=== PATIENT | female | born 1965 | race Caucasian/White ===

== ENCOUNTER → 2017-03-29 | Outpatient (CLI) | payer BC ==
--- NOTE | 2017-03-29 15:50 | XR ---
EXAMINATION TYPE: XR chest 2V DATE OF EXAM: 03/29/2017 HISTORY: [id number] chest tightness. REFERENCE: Previous study dated 03/24/2014. FINDINGS: The lungs are overinflated but clear. Pleural space are clear. The heart is not enlarged. IMPRESSION: COPD.
== END | disposition home or self-care (01) ==
LOC: RADXRYALE 15:18
PROVIDERS: ATTEND Family Medicine
DX: J44.9 Chronic obstructive pulmonary disease, unspecified (principal); R07.89 Other chest pain
CPT/HCPCS: 71020

== ENCOUNTER → 2017-06-21 | Outpatient (CLI) | payer BC ==
--- NOTE | 2017-06-21 08:14 | CT ---
EXAMINATION TYPE: CT sinus wo con DATE OF EXAM: 06/21/2017 COMPARISON: 10/01/1715 HISTORY: Chronic sinusitis Unenhanced CT of the paranasal sinuses was performed in the axial and coronal planes. Bone and soft tissue settings are submitted. There is been medial maxillary antrectomy and partial ethmoidectomy bilaterally. Mild persistent muco anne thickening is seen at the base of the left maxillary sinus. Remaining ethmoidal air cells, fronta l sinus and sphenoid sinus are well aerated. No air-fluid levels are seen. The nasal septum is midline. No bony destructive changes are seen within the field of view. IMPRESSION: Postoperative changes as described with the improved mucosal thickening left maxillary sinus.
== END | disposition home or self-care (01) ==
LOC: RADCTMAIN 07:15
PROVIDERS: ATTEND Otolaryngology
DX: J34.89 Other specified disorders of nose and nasal sinuses (principal); J32.9 Chronic sinusitis, unspecified; Z98.890 Other specified postprocedural states
CPT/HCPCS: 70486

== ENCOUNTER → 2017-11-04 | Outpatient (CLI) | payer BC ==
[2017-11-04 10:47] LABS: Blood Urea Nitrogen 15 mg/dL (7-17)
--- NOTE | 2017-11-04 12:54 | CT ---
EXAMINATION TYPE: CT abdomen pelvis w con DATE OF EXAM: 11/04/2017 COMPARISON: NONE HISTORY: Patient complains of left flank pain. CT DLP: 364 mGycm Automated exposure control for dose reduction was used. TECHNIQUE: Helical acquisition of images from the lung bases through the pelvis have been completed. CONTRAST: Performed with Oral Contrast and with IV Contrast, patient injected with 100 mL of Omnipaque 300. FINDINGS: LUNG BASES: No significant abnormality is appreciated. AORTA: No significant abnormality is appreciated. LIVER/GB: No significant abnormality is appreciated. PANCREAS: No significant abnormality is seen. SPLEEN: No significant abnormality is seen. ADRENALS: No significant abnormality is seen. KIDNEYS: Prominent extrarenal pelves are again noted as on prior exam with possible ureteropelvic janette ction stenosis, mild hydronephrosis, there is a calyceal diverticulum, focal scarring present at the upper pole the right kidney laterally as on prior. REPRODUCTIVE ORGANS: No significant abnormality is seen BOWEL: No significant abnormality is seen. Scattered diverticula associated with the colon. Cecum is present within the pelvis as on prior. FREE AIR: No Free Air visible. ASCITES: None visible. PELVIC ADENOPATHY: None visualized. RETROPERITONEAL ADENOPATHY: No Retroperitoneal Adenopathy visible. URINARY BLADDER: No significant abnormality is seen. OSSEOUS STRUCTURES: Degenerative disc changes especially at L5-S1, lateral extension of endplate dis c complex causes foraminal encroachment bilaterally at L5-S1. IMPRESSION: DEGENERATIVE DISC DISEASE. DIVERTICULOSIS. FINDINGS WITHIN THE KIDNEYS ARE STABLE ADDITIONAL FINDINGS ABOVE.
== END | disposition home or self-care (01) ==
LOC: RADCTMAIN 10:08
PROVIDERS: ATTEND Physician Assistant Medical
DX: K57.90 Diverticulosis of intestine, part unspecified, without perforation or abscess without bleeding (principal); N13.30 Unspecified hydronephrosis
CPT/HCPCS: 82565; 84520; 74177; 36415; Q9967

== ENCOUNTER → 2018-08-11 | Outpatient (CLI) | payer BC ==
--- NOTE | 2018-08-11 11:18 | BD ---
EXAMINATION TYPE: Axial Bone Density DATE OF EXAM: 08/11/2018 COMPARISON: NONE CLINICAL HISTORY: Height: 63 Weight: 108.2 FRAX RISK QUESTIONS: Alcohol (3 or more units per day): no Family History (Parent hip fracture): no Glucocorticoids (More than 3mos): no (Ex: prednisone, prednisolone, methylprednisolone, dexamethasone, and hydrocortisone). History of Fracture in Adulthood: yes Secondary Osteoporosis: 1. Type 1 Diabetes: no 2. Hyperthyroidism: no 3. Menopause before 45: yes 4. Malnutrition: no 5. Chronic liver disease: no Rheumatoid Arthritis: no Current Tobacco Use: yes RISK FACTORS HISTORY OF: History of Wrist Fracture: yes right When: 2001 Family History of Osteoporosis: no Active: yes Diet low in dairy products/other sources of calcium: no Postmenopausal woman: Lost more than 2 inches in height since high school: no MEDICATIONS: none Additional History: EXAM MEASUREMENTS: Bone mineral densitometry was performed using the [employer] System. Bone mineral density as measured about the Lumbar spine is: ----- L1-L4(G/cm2): 0.959 T Score Values are as follows: ----- L2: -2.1 ----- L3: -1.2 ----- L4: -2.0 ----- L1-L4: -1.8 Bone mineral density : baseline Bone mineral density about the R hip (g/cm2): 0.717 Bone mineral density about the L hip (g/cm2): 0.766 T Score values are as follows: -----R Neck: -2.3 -----L Neck: -2.0 -----R Total: -1.6 -----L Total: -1.7 Bone mineral density : baseline IMPRESSION: Osteopenia about the lumbar spine and bilateral femora. NOTE: T-SCORE=SD OF THE YOUNG ADULT MEAN.
--- NOTE | 2018-08-14 11:48 | MM ---
Reason for exam: screening (asymptomatic). History: Patient is postmenopausal. Physical Findings: A clinical breast exam by your physician is recommended on an annual basis and results should be correlated with mammographic findings. MG Screening Mammo w CAD Bilateral CC and MLO view(s) were taken. No prior studies available for comparison. The breast tissue is heterogeneously dense. This may lower the sensitivity of mammography. Finding: There is a 7 mm mass in the upper quadrant, central position of the right breast. ASSESSMENT: Incomplete: need additional imaging evaluation, BI-RAD 0 RECOMMENDATION: Special view mammogram of the right breast. If lesion persists on supplemental views, image directed ultrasound is recommended. [facility] will attempt to contact patient to return for supplemental views and ultrasound if indicated.
== END | disposition home or self-care (01) ==
LOC: RADMAMWWP 10:14
PROVIDERS: ATTEND Family Medicine
DX: Z12.31 Encounter for screening mammogram for malignant neoplasm of breast (principal); M85.88 Other specified disorders of bone density and structure, other site; M85.852 Other specified disorders of bone density and structure, left thigh; Z78.0 Asymptomatic menopausal state; M85.851 Other specified disorders of bone density and structure, right thigh
CPT/HCPCS: 77067; 77080

== ENCOUNTER → 2018-08-22 | Outpatient (CLI) | payer BC ==
--- NOTE | 2018-08-23 07:20 | MM ---
Reason for exam: additional evaluation requested from abnormal screening. Last mammogram was performed less than 1 month ago. History: Patient is postmenopausal. Physical Findings: Nurse did not find any significant physical abnormalities on exam. MG Work Up Mamm w CAD RT Spot compression CC, spot compression MLO, and LM view(s) were taken of the right breast. Prior study comparison: August 11, 2018, bilateral MG screening mammo w CAD. The breast tissue is heterogeneously dense. This may lower the sensitivity of mammography. No persistent lesion on additional views. These results were verbally communicated with the patient and result sheet given to the patient on 08/22/18. ASSESSMENT: Negative, BI-RAD 1 RECOMMENDATION: Return to routine screening mammogram schedule for both breasts.
== END | disposition home or self-care (01) ==
LOC: RADMAMWWP 15:35
PROVIDERS: ATTEND Family Medicine
DX: R92.8 Other abnormal and inconclusive findings on diagnostic imaging of breast (principal)
CPT/HCPCS: 77065

== ENCOUNTER → 2020-09-02 | Outpatient (CLI) | payer BC ==
--- NOTE | 2020-09-02 10:45 | XR ---
EXAMINATION TYPE: XR chest 2V DATE OF EXAM: 09/02/2020 COMPARISON: 03/29/2017 HISTORY: Shortness of breath TECHNIQUE: Frontal and lateral views of the chest are obtained. FINDINGS: Scattered senescent parenchymal changes noted. Hyperinflation compatible with COPD. No evidence for infiltrate. No evidence for atelectasis. Heart size is stable. Mediastinal structures are stable and grossly unremarkable. No evidence for hilar prominence. Degenerative changes dorsal spine. IMPRESSION: 1. No evidence for acute pulmonary disease.
== END | disposition home or self-care (01) ==
LOC: RADXRMAIN 09:56
PROVIDERS: ATTEND Family Medicine
DX: R07.9 Chest pain, unspecified (principal)
CPT/HCPCS: 71046

== ENCOUNTER → 2020-10-01 | Outpatient (CLI) | payer BC ==
--- NOTE | 2020-10-02 07:21 | US ---
EXAMINATION TYPE: US thyroid st tissue head/neck DATE OF EXAM: 10/01/2020 COMPARISON: NONE CLINICAL HISTORY: E03.9 hypothryoidism. Hypothyroidism GLAND SIZE: Right Lobe: 4.7 x 1.3 x 1.4 cm Overall Parenchyma: homogenous Left Lobe: 4.4 x 1.3 x 1.5 cm Overall Parenchyma: homogeneous Isthmus Thickness: .2 cm NODULES RIGHT: # of nodules measured on right: 0 LEFT: # of nodules measured on left: 0 ISTHMUS: # of nodules measured in the isthmus: 0 Bilateral neck scanned, no evidence of lymphadenopathy. IMPRESSION: Normal thyroid ultrasound
== END | disposition home or self-care (01) ==
LOC: RADUSWWP 16:45
PROVIDERS: ATTEND Family Medicine
DX: E03.9 Hypothyroidism, unspecified (principal); R22.0 Localized swelling, mass and lump, head; R22.1 Localized swelling, mass and lump, neck
CPT/HCPCS: 76536

== ENCOUNTER → 2020-12-10 | Outpatient (CLI) | payer BC ==
[2020-12-10 11:28] LABS: T4, Free (Free Thyroxine) 1.27 ng/dL (0.78-2.19)
[2020-12-10 17:14] LABS: Thyroid Peroxidase Antibodies <28.0 U/mL (0.0-60.0)
[2020-12-10 19:34] LABS: ACTH <5.00 pg/mL (0.00-45.99)
[2020-12-11 01:27] LABS: Prolactin 9.2 ng/mL (2.8-29.2)
--- NOTE | 2020-12-11 16:20 | NM ---
EXAMINATION TYPE: NM thyroid image w uptake DATE OF EXAM: 12/11/2020 COMPARISON: History positive HISTORY: E05.90 Subclinical hyperthyroidism TECHNIQUE: Thyroid iodine uptake is calculated and images performed after the oral administration of 308 uCi 1-123 Capsule. FINDINGS: There is normal distribution of activity throughout the gland. The 4 hour iodine uptake is calculated at 10.9 % (normal range 8-14%). The 24-hour iodine uptake is calculated at 26.8% (tigre l range 15-35%). IMPRESSION: Normal thyroid scan and uptake.
== END | disposition home or self-care (01) ==
LOC: RADNMMAIN 09:39
PROVIDERS: ATTEND Internal Medicine Endocrinology, Diabetes & Metabolism
DX: E05.90 Thyrotoxicosis, unspecified without thyrotoxic crisis or storm (principal); R53.83 Other fatigue
CPT/HCPCS: 84439; 84445; 82533; 82607; 84443; 84146; 82024; 84480; 86376; 82306; 78012; 36415; A9516; 78014

== ENCOUNTER → 2021-04-16 | Outpatient (CLI) | payer BC ==
--- NOTE | 2021-04-16 15:23 | NM ---
EXAMINATION TYPE: NM bone scan whole body DATE OF EXAM: 04/16/2021 COMPARISON: NONE HISTORY: Bone pain Delayed whole-body scanning was performed following the injection of 22.9 mCi Tc 99m MDP. Images wer e acquired 3 hours post injection. FINDINGS: There is a small focus of radiotracer accumulation along the anterior right rib appears to be the fif th rib. This is not the rib and posttraumatic. No additional suspicious radiotracer accumulation is w ithin ribs are evident to suggest this is metastasis. Posttraumatic changes felt to be most likely wi thin the differential. There is some mild uptake within the region of the shoulders which can be degenerative in nature. Mil d uptake within the left first metatarsophalangeal joint can be degenerative in nature. No additional suspicious areas of radiotracer accumulation are evident. IMPRESSION: 1. Uptake within the anterior portion right fifth rib region may be posttraumatic. 2. Suspicious uptake within the cervical spine to account for pain is not identified. 3. Mild degenerative changes within the shoulders.
== END | disposition home or self-care (01) ==
LOC: RADNMMAIN 10:44
PROVIDERS: ATTEND Family Medicine
DX: M19.019 Primary osteoarthritis, unspecified shoulder (principal)
CPT/HCPCS: 78306; A9503

== ENCOUNTER → 2021-11-12 | Outpatient (CLI) | payer BC ==
--- NOTE | 2021-11-12 13:22 | XR ---
EXAMINATION TYPE: XR cervical spine comp DATE OF EXAM: 11/12/2021 COMPARISON: None available INDICATION: 55-year-old female, neck and back pain radiating to the arms and fingers. TECHNIQUE: Standard 6 views of the cervical spine. FINDINGS: Anterolisthesis of C4 over C5 and to a lesser extent C5 over C6, likely degenerative. No definite kody tebral body collapse or acute displaced fracture. Degenerative changes of the cervical spine with mul tilevel opposing endplate osteophytosis, degenerated discs and uncovertebral osteoarthropathy, most e vident at C5-6 and C6-7 levels. Unremarkable prevertebral soft tissue. Suspected right C3-4 and left C6-7 bony neuroforaminal stenosi s. Multilevel facet osteoarthropathy is also noted most evident at left C5-6 facet. Suboptimal open-m outh view of grossly unremarkable atlantoaxial articulations. IMPRESSION: Degenerative changes of the cervical spine as described above. Further MRI assessment can be consider ed if clinically required.
--- NOTE | 2021-11-12 13:25 | XR ---
EXAMINATION TYPE: XR thoracic spine complete DATE OF EXAM: 11/12/2021 COMPARISON: X-ray dated 09/02/2020 INDICATION: Pain TECHNIQUE: Standard 3 views of the thoracic spine FINDINGS: Preserved dorsal kyphosis. No significant anterolisthesis or retrolisthesis. No definite vertebral elizabeth dy collapse or acute displaced fracture. Mild degenerative changes of the thoracic spine with tiny mu ltilevel opposing endplate osteophytosis. Rather maintained intervertebral disc spaces. T1 and T2 vertebrae are suboptimally visualized in the lateral view. No gross paraspinal lesion. Aortic atherosclerotic calcifications. Questionable 5 mm le ft renal calculus versus soft tissue calcification. IMPRESSION: Mild degenerative changes of thoracic spine with other incidental findings as described above.
== END | disposition home or self-care (01) ==
LOC: RADXRMAIN 10:18
PROVIDERS: ATTEND Family Medicine
DX: M47.22 Other spondylosis with radiculopathy, cervical region (principal); M47.24 Other spondylosis with radiculopathy, thoracic region
CPT/HCPCS: 72050; 72072

== ENCOUNTER → 2021-12-10 | Outpatient (CLI) | payer BC ==
--- NOTE | 2021-12-10 09:05 | MR ---
MRI CERVICAL SPINE: CLINICAL HISTORY: Neck pain into left upper extremity. TECHNIQUE: Multiplanar, multisequence imaging of the cervical spine is performed without IV contrast. COMPARISON: Cervical spine x-ray November 12, 2021. FINDINGS: Sagittal images of the cervical spine show the craniocervical junction to remain within nor mal limits. The cervical and upper thoracic spinal cord is normal in caliber and signal. Vertebral alignment is straightened on current study. Mild disc space narrowing C5-C6 and C6-C7 levels with mil d to moderate anterior spurring on current study. The vertebral body heights are normal. The bone m arrow signal intensity is within normal limits. Axial images show C2-C3 level to appear within normal limits. Axial images at C3-C4 level show some uncovertebral facet degenerative changes bilaterally causing mi ld right greater than left bilateral neural foraminal narrowing. This is new from prior MRI. Axial images at C4-C5 level remain within normal limits. Axial images at C5-C6 level redemonstrate more prominent broad-based spur disc complex effacing the a nterior thecal sac nearly up to ventral surface of spinal cord and causing mild right greater than le ft bilateral neural foraminal narrowing. Axial images at C6-C7 level show broad-based posterior spur disc complex more prominent from 2015 [address] but less prominent than at C5-C6 level mildly effacing anterior thecal sac and causing mild to mod erate left greater than right bilateral neural foraminal narrowing which is more prominent from 2015 study. Axial images at C7-T1 level appear within normal limits. IMPRESSION: Straightening of cervical spine with multilevel degenerative changes greatest at C5-C6 le [place] as detailed above. Degenerative progression from 2015 MRI is noted as detailed above.
== END | disposition home or self-care (01) ==
LOC: RADMRIMAIN 07:17
PROVIDERS: ATTEND Family Medicine
DX: M47.22 Other spondylosis with radiculopathy, cervical region (principal)
CPT/HCPCS: 72141

== ENCOUNTER → 2022-04-23 | Outpatient (CLI) | payer BC ==
--- NOTE | 2022-04-23 07:35 | CT ---
EXAMINATION TYPE: CT brain wo con CT DLP: 943.8 mGycm, Automated exposure control for dose reduction was used. DATE OF EXAM: 04/23/2022 7:16 AM COMPARISON: CT sinus 06/21/2017. CLINICAL INDICATION:Female, 56 years old with history of R51.9 headaches, headaches TECHNIQUE: Brain: Axial CT images of the brain were obtained with coronal and sagittal reformats created and rev iewed. Contrast used: None. Oral contrast used: None. FINDINGS: Brain: Extra-axial spaces: No abnormal extra-axial fluid collections. Ventricular system: Within normal limits Cerebral parenchyma: No acute intraparenchymal hemorrhage or mass effect. The mccurdy-white junction is well differentiated. Scattered hypoattenuating areas are seen within the white matter. Cerebellum: Unremarkable. Mass effect: No evidence of midline shift. Intracranial vasculature: Atherosclerotic calcifications of the intracranial vessels. Soft tissues: Normal. Calvarium/osseous structures: No depressed skull fracture. Paranasal sinuses and mastoid air cells: Mild scattered paranasal sinus disease. Visualized orbits: Orbital contents are intact. IMPRESSION: 1. No acute intracranial process. 2. Nonspecific white matter changes, likely secondary to chronic small vessel ischemic disease.
== END | disposition home or self-care (01) ==
LOC: RADCTMAIN 07:02
PROVIDERS: ATTEND Family Medicine
DX: R55 Syncope and collapse (principal); R51.9 Headache, unspecified
CPT/HCPCS: 70450

== ENCOUNTER 2022-09-14 15:44 | Emergency (ER) | payer BC ==
--- NOTE | 2022-09-14 15:47 | ED ---
General Adult HPI - General Source: patient, RN notes reviewed Mode of arrival: ambulatory Limitations: no limitations <Justin Vazquez - Last Filed: 09/14/22 15:46> <London Corcoran - Last Filed: 09/14/22 19:25> - General Stated complaint: abd pain Time Seen by Provider: 09/14/22 15:46 - History of Present Illness Initial comments: This a 48-year-old female sent emergency Department chief complaint abdominal pain. Patient been having increasing abdominal last couple weeks. Patient states she was placed on antibiotics for urgent care for possible bowel infection. She states has not helped. She states she's had no prior abdominal surgeries she's had some problems with her kidneys in the past. She does admit to nausea, diarrhea. She states the stool has firmed up some. Denies any rectal bleeding. Denies reported fever. (Justin Vazquez) This a 56-year-old female who presents emergency Department complaining of abdominal pain for the last 3 weeks. Patient denies any nausea vomiting and occasionally has some diarrhea. Patient states once all someone on the 16th and they were unable to find anything and she was post to pop the primary medical care doctor which she did and they set her up with appointment for GI bleed her pain continues or she came back to the emergency department. Patient denies any fever chills. Patient denies any chest pain difficult breathing first breath per patient denies any dysuria hematuria urinary frequency. (London Corcoran) - Related Data Home Medications Medication Instructions Recorded Confirmed Amoxicillin 500 mg PO Q8H 10/04/14 10/04/14 Citalopram Hydrobromide 10 mg PO QAM 10/04/14 10/04/14 [Citalopram HBr] Allergies Allergy/AdvReac Type Severity Reaction Status Date / Time ciprofloxacin [From Cipro] Allergy SOB AND Verified 09/14/22 16:06 DIZZINESS ciprofloxacin HCl Allergy SOB AND Verified 09/14/22 16:06 [From Cipro] DIZZINESS ibuprofen [From Motrin] Allergy hives Verified 09/14/22 16:06 Sulfa (Sulfonamide Allergy hives Verified 09/14/22 16:06 Antibiotics) Review of Systems ROS Other: All systems not noted in ROS Statement are negative. <Justin Vazquez - Last Filed: 09/14/22 15:46> ROS Other: All systems not noted in ROS Statement are negative. <London Corcoran - Last Filed: 09/14/22 19:25> ROS Statement: Those systems with pertinent positive or pertinent negative responses have been documented in the HPI. Past Medical History Past Medical History: GERD/Reflux Additional Past Medical History / Comment(s): RECENT BLOATING, GAS, WEIGHT LOSS AND NO APPETITE History of Any Multi-Drug Resistant Organisms: None Reported Past Surgical History: Hysterectomy Additional Past Surgical History / Comment(s): RT KIDNEY SURGERY. EGD Past Anesthesia/Blood Transfusion Reactions: No Reported Reaction Past Alcohol Use History: None Reported Past Drug Use History: None Reported <Justin Vazquez - Last Filed: 09/14/22 15:46> General Exam <London Corcoran - Last Filed: 09/14/22 19:25> - General Exam Comments Initial Comments: GENERAL: Patient is well-developed and well-nourished. Patient is nontoxic and well- hydrated and is in mild distress. ENT: Neck is soft and supple. No significant lymphadenopathy is noted. Oropharynx is clear. Moist mucous membranes. Neck has full range of motion without eliciting any pain. EYES: The sclera were anicteric and conjunctiva were pink and moist. Extraocular movements were intact and pupils were equal round and reactive to light. Eyelids were unremarkable. PULMONARY: Unlabored respirations. Good breath sounds bilaterally. No audible rales rhonchi or wheezing was noted. CARDIOVASCULAR: There is a regular rate and rhythm without any murmurs gallops or rubs. ABDOMEN: Patient is lower abdominal pain bilaterally but much worse on the left than the right SKIN: Skin is clear with no lesions or rashes and otherwise unremarkable. NEUROLOGIC: Patient is alert and oriented x3. Cranial nerves II through XII are grossly intact. Motor and sensory are also intact. Normal speech, volume and content. Symmetrical smile. MUSCULOSKELETAL: Normal extremities with adequate strength and full range of motion. No lower e xtremity swelling or edema. No calf tenderness. LYMPHATICS: No significant lymphadenopathy is noted PSYCHIATRIC: Normal psychiatric evaluation. (London Corcoran) Course Vital Signs 09/14/22 16:03 Temperature 98.6 F Pulse Rate 101 H Respiratory 18 Rate Blood Pressure 119/90 O2 Sat by Pulse 96 Oximetry Medical Decision Making - Lab Data Result diagrams: 09/14/22 16:17 09/14/22 16:17 <London Corcoran - Last Filed: 09/14/22 19:25> - Medical Decision Making Was pt. sent in by a medical professional or institution? @ -No Did you speak to anyone other than the patient for history? @ -No Did you review nursing and triage notes? @ -I agree with nursing notes Were old charts reviewed? @ -Old CAT scan was compared to the new CAT scan Differential Diagnosis? @ -Differential Abdominal Pain Women: Appendicitis, Cholecystitis, diverticulosis, ischemic bowel, pancreatitis, hepatitis, UTI, gastroenteritis, AAA, incarcerated hernia, bowel obstruction, constipation, inflammatory bowel, hepatitis, peptic ulcer disease, splenic infarction, perforated viscus, vulvitis, ovarian torsion, PID, kidney stone, placenta abruption, this is not meant to be an all-inclusive list EKG interpreted by me (3pts min.)? @ -None X-rays interpreted by me (1pt min.)? @ -No CT interpreted by me (1pt min.)? @ -CT of the abdomen and pelvis was interpreted by myself. The renal pelvises bilaterally are enlarged and seems very similar to the previous computed tomography scan of the abdomen pelvis U/S interpreted by me (1pt. min.)? @ -None What testing was considered but not performed? (CT, X-rays, U/S, labs)? Why? @ -None What meds were considered but not given? Why? @ -No Did you discuss the management of the patient with other professionals? @ -No Did you reconcile home meds? @ -No Was smoking cessation discussed for >3mins.? @ -No Was critical care preformed (if so, how long)? @ -No Were there social determinants of health that impacted care today? How? (Homelessness, low income, unemployed, alcoholism, drug addiction, transportation, low edu. Level, literacy, decrease access to med. care, intermediate, rehab)? @ -No Was there de-escalation of care discussed even if they declined? (Discuss DNR or withdrawal of care, Hospice)? @ -No What co-morbidities impacted this encounter? (DM, HTN, Smoking, COPD, CAD, Cancer, CVA, Hep., AIDS, mental health diagnosis, sleep apnea, morbid obesity)? @ -No Was patient admitted / discharged? @ -Patient will be discharged home Undiagnosed new problem with uncertain prognosis? @ -No Drug Therapy requiring intensive monitoring for toxicity (Heparin, Nitro, Insulin, Cardizem)? @ -No Were any procedures done? @ -No Diagnosis/symptom? @ -Abdominal pain Acute, or Chronic, or Acute on Chronic? @ -Acute on chronic Uncomplicated (without systemic symptoms) or Complicated (systemic symptoms)? @ -Uncomplicated Side effects of treatment? @ -No Exacerbation, Progression, or Severe Exacerbation] @ -No Poses a threat to life or bodily function? @ -No (London Corcoran) - Lab Data Lab Results 09/14/22 09/14/22 09/14/22 Range/Units 16:17 16:17 16:17 WBC 8.2 (3.8-10.6) k/uL RBC 4.76 (3.80-5.40) m/uL Hgb 15.3 (11.4-16.0) gm/dL Hct 45.1 (34.0-46.0) % MCV 94.8 (80.0-100.0) fL MCH 32.2 (25.0-35.0) pg MCHC 33.9 (31.0-37.0) g/dL RDW 12.2 (11.5-15.5) % Plt Count 222 (150-450) k/uL MPV 7.3 Neutrophils % 72 % Lymphocytes % 18 % Monocytes % 7 % Eosinophils % 1 % Basophils % 1 % Neutrophils # 5.9 (1.3-7.7) k/uL Lymphocytes # 1.5 (1.0-4.8) k/uL Monocytes # 0.6 (0-1.0) k/uL Eosinophils # 0.1 (0-0.7) k/uL Basophils # 0.1 (0-0.2) k/uL Sodium 139 (137-145) mmol/L Potassium 4.1 (3.5-5.1) mmol/L Chloride 105 (98-107) mmol/L Carbon Dioxide 26 (22-30) mmol/L Anion Gap 8 mmol/L BUN 11 (7-17) mg/dL Creatinine 0.74 (0.52-1.04) mg/dL Est GFR (CKD-EPI)AfAm >90 (>60 ml/min/1.73 sqM) Est GFR (CKD-EPI)NonAf >90 (>60 ml/min/1.73 sqM) Glucose 82 (74-99) mg/dL Plasma Lactic Acid Berto (0.7-2.0) mmol/L Calcium 9.7 (8.4-10.2) mg/dL Total Bilirubin 0.7 (0.2-1.3) mg/dL AST 23 (14-36) U/L ALT 15 (4-34) U/L Alkaline Phosphatase 75 (38-126) U/L Total Protein 6.9 (6.3-8.2) g/dL Albumin 4.3 (3.5-5.0) g/dL Lipase 40 (23-300) U/L Urine Color Colorless Urine Appearance Clear (Clear) Urine pH 7.0 (5.0-8.0) Ur Specific [place] 1.001 (1.001-1.035) Urine Protein Negative (Negative) Urine Glucose (UA) Negative (Negative) Urine Ketones Negative (Negative) Urine Blood Negative (Negative) Urine Nitrite Negative (Negative) Urine Bilirubin Negative (Negative) Urine Urobilinogen <2.0 (<2.0) mg/dL Ur Leukocyte Esterase Negative (Negative) 09/14/22 Range/Units 16:17 WBC (3.8-10.6) k/uL RBC (3.80-5.40) m/uL Hgb (11.4-16.0) gm/dL Hct (34.0-46.0) % MCV (80.0-100.0) fL MCH (25.0-35.0) pg MCHC (31.0-37.0) g/dL RDW (11.5-15.5) % Plt Count (150-450) k/uL MPV Neutrophils % % Lymphocytes % % Monocytes % % Eosinophils % % Basophils % % Neutrophils # (1.3-7.7) k/uL Lymphocytes # (1.0-4.8) k/uL Monocytes # (0-1.0) k/uL Eosinophils # (0-0.7) k/uL Basophils # (0-0.2) k/uL Sodium (137-145) mmol/L Potassium (3.5-5.1) mmol/L Chloride (98-107) mmol/L Carbon Dioxide (22-30) mmol/L Anion Gap mmol/L BUN (7-17) mg/dL Creatinine (0.52-1.04) mg/dL Est GFR (CKD-EPI)AfAm (>60 ml/min/1.73 sqM) Est GFR (CKD-EPI)NonAf (>60 ml/min/1.73 sqM) Glucose (74-99) mg/dL Plasma Lactic Acid Berto 0.9 (0.7-2.0) mmol/L Calcium (8.4-10.2) mg/dL Total Bilirubin (0.2-1.3) mg/dL AST (14-36) U/L ALT (4-34) U/L Alkaline Phosphatase (38-126) U/L Total Protein (6.3-8.2) g/dL Albumin (3.5-5.0) g/dL Lipase (23-300) U/L Urine Color Urine Appearance (Clear) Urine pH (5.0-8.0) Ur Specific [place] (1.001-1.035) Urine Protein (Negative) Urine Glucose (UA) (Negative) Urine Ketones (Negative) Urine Blood (Negative) Urine Nitrite (Negative) Urine Bilirubin (Negative) Urine Urobilinogen (<2.0) mg/dL Ur Leukocyte Esterase (Negative) Disposition <Justin Vazquez - Last Filed: 09/14/22 15:46> Is patient prescribed a controlled substance at d/c from ED?: No Time of Disposition: 19:12 <London Corcoran - Last Filed: 09/14/22 19:25> Clinical Impression: Dilated renal pelvis, Abdominal pain Disposition: HOME SELF-CARE Instructions (If sedation given, give patient instructions): Abdominal Pain (ED) Referrals: Willis Agudelo MD [Medical Doctor] - 1-2 days
[2022-09-14 16:06] VITALS: RESP 18; TEMP 98.6
[2022-09-14 16:44] LABS: Appearance,Urine Clear (Clear); Bilirubin,Urine Negative (Negative); Blood,Urine Negative (Negative); Color,Urine Colorless; Glucose,Urine (UA) Negative (Negative); Ketones,Urine Negative (Negative); Leukocyte Esterase,Urine Negative (Negative); Nitrite,Urine Negative (Negative); Protein,Urine Negative (Negative); Specific Gravity,Urine 1.001 (1.001-1.035); Urobilinogen,Urine <2.0 mg/dL (<2.0)
[2022-09-14 16:46] LABS: Basophils # (A) 0.1 k/uL (0-0.2); Basophils % (A) 1 %; Eosinophils # (A) 0.1 k/uL (0-0.7); Eosinophils % (A) 1 %; HCT 45.1 % (34.0-46.0); HGB 15.3 gm/dL (11.4-16.0); Lymphocytes # (A) 1.5 k/uL (1.0-4.8); Lymphocytes % (A) 18 %; MCH 32.2 pg (25.0-35.0); MCHC 33.9 g/dL (31.0-37.0); MCV 94.8 fL (80.0-100.0); Mean Platelet Volume 7.3; Monocytes # (A) 0.6 k/uL (0-1.0); Monocytes % (A) 7 %; Neutrophils # (A) 5.9 k/uL (1.3-7.7); Neutrophils % (A) 72 %; Platelet Count 222 k/uL (150-450); RBC 4.76 m/uL (3.80-5.40); RDW 12.2 % (11.5-15.5); WBC 8.2 k/uL (3.8-10.6)
[2022-09-14 17:11] LABS: ALT 15 U/L (4-34); AST 23 U/L (14-36); African American GFR (CKD) >90 (>60 ml/min/1.73 sqM); Albumin 4.3 g/dL (3.5-5.0); Alkaline Phosphatase 75 U/L (38-126); Anion Gap 8 mmol/L; Blood Urea Nitrogen 11 mg/dL (7-17); Calcium 9.7 mg/dL (8.4-10.2); Carbon Dioxide 26 mmol/L (22-30); Chloride 105 mmol/L (98-107); Glucose 82 mg/dL (74-99); Lipase 40 U/L (23-300); Non-African American GFR(CKD) >90 (>60 ml/min/1.73 sqM); Potassium 4.1 mmol/L (3.5-5.1); Sodium 139 mmol/L (137-145); Total Bilirubin 0.7 mg/dL (0.2-1.3); Total Protein 6.9 g/dL (6.3-8.2)
--- NOTE | 2022-09-14 18:56 | CT ---
EXAMINATION TYPE: CT abdomen pelvis w con DATE OF EXAM: 09/14/2022 COMPARISON: 11/04/2017 HISTORY: lower abdominal pain CT DLP: 466.2 mGycm Automated exposure control for dose reduction was used. CONTRAST: Performed with IV Contrast, patient injected with 100 mL of Isovue 300. Images obtained from the diaphragm to the floor of the pelvis with the IV contrast. Lung bases are clear. No pleural effusion. Heart size is normal. No pericardial effusion. Liver splee n and stomach pancreas gallbladder appear intact. The bile ducts are not dilated. There is small hiatal hernia. There is no adrenal mass. Kidneys show satisfactory contrast opacificat ion. There is dilated left renal pelvis. There is slight fullness of the right renal pelvis. No calie ctasis. Delayed images show normal renal excretion. No retroperitoneal adenopathy. Bladder distends smoothly. No inguinal hernia. No free fluid in the pelvis. There is no mesenteric edema. No ascites or free air. No sign of a bowel obstruction. Appendix not se en. No sign of thickened appendix. The lumbar vertebrae have normal alignment. Disc spaces are fairly normal. No compression fracture. A bdominal aorta is atheromatous. The bony pelvis is intact. The hip joints are intact. Sacroiliac join ts are intact. IMPRESSION: Mild enlargement of the left and right renal pelvis but no caliectasis and no renal atrophy. I do not suspect any renal obstruction. Left renal pelvis increased compared to old exam.
[2022-09-14] MEDS ORDERED: HYDROmorphone 0.5 MG/0.5 ML SYRINGE IVP STA (19:02)
[2022-09-14 19:38] VITALS: BP 107/63; PULSE 70
== END 2022-09-14 19:35 | disposition home or self-care (01) ==
LOC: EC 15:44
DX: Q62.39 Other obstructive defects of renal pelvis and ureter (principal); Z88.1 Allergy status to other antibiotic agents; Z88.2 Allergy status to sulfonamides; Z88.6 Allergy status to analgesic agent; Z88.8 Allergy status to other drugs, medicaments and biological substances
CPT/HCPCS: 36415; 80053; 83605; 83690; 85025; 81003; 74177; 99284; 96374; J1170; Q9967

== ENCOUNTER → 2023-05-27 | Outpatient (CLI) | payer BC ==
--- NOTE | 2023-05-27 09:03 | XR ---
EXAMINATION TYPE: XR abdomen 1V DATE OF EXAM: 05/27/2023 COMPARISON: NONE HISTORY: Pain TECHNIQUE: Single supine KUB image of the abdomen is obtained FINDINGS: Small bowel demonstrates no evidence for dilatation or air fluid levels. Gas and fecal material is seen in non-distended colon. No convincing evidence for pneumoperitoneum. No unusual calcifications. The lung bases are clear. The osseous structures are intact. IMPRESSION: 1. Overall nonobstructive bowel gas pattern.
== END | disposition home or self-care (01) ==
LOC: RADXRMAIN 08:23
PROVIDERS: ATTEND Family Medicine
DX: K58.9 Irritable bowel syndrome, unspecified (principal); R10.9 Unspecified abdominal pain
CPT/HCPCS: 74018

== ENCOUNTER → 2023-06-16 | Outpatient (CLI) | payer BC ==
--- NOTE | 2023-06-16 14:52 | CT ---
EXAMINATION TYPE: CT abdomen pelvis wo con DATE OF EXAM: 06/16/2023 COMPARISON: 09/14/2022 HISTORY: Constipation x 10 months since colonoscopy in September CT DLP: 204.1 mGycm Examination of the solid and hollow viscera is limited given the lack of contrast. FINDINGS: LUNG BASES: No evidence for nodule. No evidence for infiltrate. LIVER/GB: The gallbladder is unremarkable. No space-occupying hepatic lesion. PANCREAS: No pancreatic mass identified. No inflammatory process seen. SPLEEN: No evidence for splenomegaly. No intrasplenic lesions seen. ADRENALS: No adrenal nodules identified. No evidence for thickening. KIDNEYS: No evidence for renal mass. No nephrolithiasis. Prominence of the left renal pelvis is redem onstrated which may reflect extrarenal pelvis versus congenital UPJ obstruction. BOWEL: Appendix has a normal appearance. Sigmoid diverticulosis without diverticulitis. No evidence o f bowel obstruction. No inflammatory process. Lymph nodes: No evidence for adenopathy greater than 1 cm. Abdominal aorta: Atheromatous changes seen. No evidence for aneurysm. Genital organs: The uterus appears to be surgically absent. Other: No significant abnormality. IMPRESSION: 1.Prominence of the left renal pelvis is redemonstrated which may reflect extrarenal pelvis versus co ngenital UPJ obstruction. 2. Sigmoid diverticulosis without diverticulitis.
== END | disposition home or self-care (01) ==
LOC: RADCTMAIN 14:24
PROVIDERS: ATTEND Family Medicine
DX: K58.9 Irritable bowel syndrome, unspecified (principal); K57.30 Diverticulosis of large intestine without perforation or abscess without bleeding
CPT/HCPCS: 74176

== ENCOUNTER → 2023-08-02 | Outpatient (CLI) | payer BC ==
--- NOTE | 2023-08-02 10:49 | US ---
EXAMINATION TYPE: US kidneys/renal and bladder DATE OF EXAM: 08/02/2023 COMPARISON: 06/16/2023 CLINICAL INDICATION: Female, 57 years old with history of N13.30 HYDRONEPHROSIS; f/u to ct scan EXAM MEASUREMENTS: Right Kidney: 8.1 x 3.9 x 4.7 cm Left Kidney: 10.1 x 5.0 x 4.6 cm Right Kidney: Prominent collecting system compared to prior. Left Kidney: Hydronephrosis seen hydronephrosis similar prior CT. Bladder: anechoic Bilateral Jets seen: Right only IMPRESSION: 1. Dilation to the left renal collecting system similar to prior CT. Correlate for ureteral strictur e. No evidence for obstructing calculus on prior CT. 2. Mild dilation of the right collecting system correlate for hydronephrosis.
== END | disposition home or self-care (01) ==
LOC: RADUSWWP 09:31
PROVIDERS: ATTEND Urology
DX: N13.30 Unspecified hydronephrosis (principal); N28.89 Other specified disorders of kidney and ureter
CPT/HCPCS: 76770

== ENCOUNTER → 2023-08-17 | Outpatient (CLI) | payer BC ==
[~2023-08-17] MED LIST: FUROSEMIDE 10 MG/ML 2 ML VIAL IV ONE
--- NOTE | 2023-08-20 14:45 | NM ---
EXAMINATION TYPE: NM lasix renogram DATE OF EXAM: 08/17/2023 COMPARISON: CT 06/16/2023. 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 Immediate images post injection FINDINGS: Left: 57.4 %. Right: 42.6 %. Max renal flow left: 19 minutes. Max renal flow right: 5 minutes. Satisfactory accumulation of radiotracer within both renal collecting systems. After the administrati on of Lasix, there is prompt excretion from both collecting systems. T 1/2 left: NA minutes. T 1/2 right: 13.2 minutes minutes. IMPRESSION: Findings compatible with obstructed left kidney collecting system with poor excretion likely due to c hronic obstruction. Correlate for stricture at the ureteropelvic junction.
== END | disposition home or self-care (01) ==
LOC: RADNMMAIN 12:54
PROVIDERS: ATTEND Urology
DX: Q62.11 Congenital occlusion of ureteropelvic junction (principal)
CPT/HCPCS: 78708; A9562

== ENCOUNTER → 2024-01-02 | Outpatient (CLI) | payer BC ==
--- NOTE | 2024-01-02 10:54 | US ---
EXAMINATION TYPE: US kidneys/renal and bladder DATE OF EXAM: 01/02/2024 COMPARISON: NONE CLINICAL INDICATION: Female, 58 years old with history of N13.30 LEFT HYDRONEPHROSIS; h/o recent UPJ surgery on the left, h/o right UPJ surgery 12 years ago EXAM MEASUREMENTS: Right Kidney: 8.9 x 3.1 x 3.7 cm Left Kidney: 10.8 x 4.5 x 4.6 cm Right Kidney: Prominent renal pelvis, wnl Left Kidney: Hydronephrosis has resolved from previous scan with possible mild hydro present today Bladder: wnl No nephrolithiasis is seen. No masses are identified. The urinary bladder is anechoic. Bilateral u reteral jets are seen. IMPRESSION: Improved hydronephrosis left kidney with mild residual present. Prominence of the right renal pelvis noted as well.
== END | disposition home or self-care (01) ==
LOC: RADUSWWP 10:18
PROVIDERS: ATTEND Urology
DX: N13.30 Unspecified hydronephrosis (principal)
CPT/HCPCS: 76770

== ENCOUNTER → 2024-07-04 | Outpatient (CLI) | payer BC ==
--- NOTE | 2024-07-04 16:56 | US ---
EXAMINATION TYPE: US kidneys/renal and bladder DATE OF EXAM: 07/04/2024 COMPARISON: US 01/02/2024 CT 06/16/2023 CLINICAL INDICATION: Female, 58 years old with history of N130 HYDRONEPHROSIS WITH URETEROPELVIC; Hyd ronephrosis. TECHNIQUE: Grayscale and color Doppler imaging of the bilateral kidneys and urinary bladder: FINDINGS: EXAM MEASUREMENTS: Right Kidney: 9.8 x 4.0 x 5.2 cm Left Kidney: 10.7 x 5.3 x 4.5 cm Right Kidney: Renal pelvis appears dilated* no masses or calculi. Left Kidney: *Hydronephrosis seen. , No masses or calculi. Bladder: Appears wnl Bilateral Jets seen: Yes IMPRESSION: Extrarenal pelves bilaterally versus mild hydronephrosis. Correlate with CT throughout obstructive ur opathy. [facility], , 07/04/2024 4:53 PM
== END | disposition home or self-care (01) ==
LOC: RADUSWWP 16:30
PROVIDERS: ATTEND Urology
DX: N13.0 Hydronephrosis with ureteropelvic junction obstruction (principal)
CPT/HCPCS: 76770

== ENCOUNTER → 2024-08-29 | Outpatient (CLI) | payer BC ==
--- NOTE | 2024-08-29 15:01 | XR ---
EXAMINATION TYPE: XR abdomen 1V DATE OF EXAM: 08/29/2024 COMPARISON: CT abdomen and pelvis 06/16/2023, abdominal radiograph 05/27/2023 HISTORY: Constipation TECHNIQUE: Single upright KUB image of the abdomen is obtained FINDINGS: Small bowel demonstrates no evidence for dilatation or air fluid levels. Gas and fecal material is seen in non-distended colon. No convincing evidence for pneumoperitoneum. No unusual calcifications. The lung bases are clear. The osseous structures are intact. IMPRESSION: Overall nonobstructive bowel gas pattern. Mild amount of stool present within the colon. [facility], , 08/29/2024 2:59 PM
== END | disposition home or self-care (01) ==
LOC: RADXRMAIN 14:41
PROVIDERS: ATTEND Family Medicine
DX: K59.00 Constipation, unspecified (principal); R19.5 Other fecal abnormalities
CPT/HCPCS: 74018

== ENCOUNTER → 2024-12-20 | Outpatient (CLI) | payer BC ==
--- NOTE | 2024-12-23 13:01 | CT ---
EXAMINATION TYPE: CT abdomen pelvis wo con DATE OF EXAM: 12/20/2024 7:56 AM COMPARISON: None. CLINICAL INDICATION: Female, 59 years old with history of N13.30 hydronephrosis, RIGHT KIDNEY PAIN X 4 MONTHS, HYDRONEPHROSIS TECHNIQUE: Axial images were obtained from above the diaphragm to the pubic rami in the axial plane a t 5 mm thick sections. Reconstructed images are reviewed on the computer in the coronal plane. CONTRAST: mL of . Study performed without Oral Contrast DLP: 407 mGycm, Automated exposure control for dose reduction was used. FINDINGS: Limited CT sections are obtained the lung bases. The lung bases are clear. CT ABDOMEN: Liver: Normal Spleen: Normal Pancreas: Normal Adrenal glands: The adrenal glands are normal. Gallbladder: Normal Kidneys: Right kidney appears normal without hydronephrosis. No right renal stones or masses evident. No left renal masses or cysts. No renal stones are evident. There is an extrarenal pelvis on the lef t. No hydroureter is evident. Some mild prominence of the renal calyces within the kidney on the stephanie nal plane suggests maybe some mild hydronephrosis. Aorta: Vascular calcification is within the aorta. Inferior vena cava: Normal. CT PELVIS: Loops of bowel within the abdomen and pelvis are normal. Diverticulosis without acute diverticulitis within the sigmoid colon This study is without oral contrast limiting bowel evaluation. Appendix: Normal as visualized. Urinary bladder: Normal. Genitourinary structures: Uterus and ovaries appear within normal limits Osseous structures: No suspicious lytic or sclerotic lesions. IMPRESSION: 1. Mild left hydronephrosis. No obstructing renal stone is identified. 2. Diverticulosis without acute diverticulitis. [facility], , 12/23/2024 12:59 PM
== END | disposition home or self-care (01) ==
LOC: RADCTMAIN 07:38
PROVIDERS: ATTEND Urology
DX: N13.30 Unspecified hydronephrosis (principal); K57.30 Diverticulosis of large intestine without perforation or abscess without bleeding
CPT/HCPCS: 74176

== ENCOUNTER 2025-03-19 08:39 | Emergency (ER) | payer BC ==
--- NOTE | 2025-03-19 09:00 | ED ---
General Adult HPI - General Chief complaint: Abdominal Pain Stated complaint: Abd pain Time Seen by Provider: 03/19/25 08:50 Source: patient, RN notes reviewed Mode of arrival: ambulatory Limitations: no limitations - History of Present Illness Initial comments: Patient is a 59-year-old female present to the emergency department with concerns with abdominal pain. Symptoms been occurring for the past few months. Patient does have a family history of Crohn's disease. Patient had a colonoscopy 3 years ago without abnormality. Patient has had alternating constipation and diarrhea. Patient has had some nausea and decreased appetite. No vomiting. Discomfort is more lower abdomen, more so on the right. No fever. - Related Data Home Medications Medication Instructions Recorded Confirmed Amoxicillin 500 mg PO Q8H 10/04/14 10/04/14 Citalopram Hydrobromide 10 mg PO QAM 10/04/14 10/04/14 [Citalopram HBr] Previous Rx's Medication Instructions Recorded Metoclopramide HCl [Reglan] 0.5 tab PO Q6HR PRN #15 tablet 03/19/25 Allergies Allergy/AdvReac Type Severity Reaction Status Date / Time ciprofloxacin [From Cipro] Allergy SOB AND Verified 09/14/22 16:06 DIZZINESS ciprofloxacin HCl Allergy SOB AND Verified 09/14/22 16:06 [From Cipro] DIZZINESS ibuprofen [From Motrin] Allergy hives Verified 09/14/22 16:06 Sulfa (Sulfonamide Allergy hives Verified 09/14/22 16:06 Antibiotics) Review of Systems ROS Statement: Those systems with pertinent positive or pertinent negative responses have been documented in the HPI. ROS Other: All systems not noted in ROS Statement are negative. Constitutional: Denies: fever Eyes: Denies: eye pain ENT: Denies: ear pain Cardiovascular: Denies: palpitations Gastrointestinal: Reports: as per HPI, abdominal pain, nausea, diarrhea, constipation. Denies: vomiting Past Medical History Past Medical History: GERD/Reflux Additional Past Medical History / Comment(s): RECENT BLOATING, GAS, WEIGHT LOSS AND NO APPETITE History of Any Multi-Drug Resistant Organisms: None Reported Past Surgical History: Hysterectomy Additional Past Surgical History / Comment(s): RT KIDNEY SURGERY. EGD Past Anesthesia/Blood Transfusion Reactions: No Reported Reaction Past Psychological History: No Psychological Hx Reported Smoking Status: Never smoker Past Alcohol Use History: None Reported Past Drug Use History: None Reported General Exam Limitations: no limitations General appearance: alert, in no apparent distress Head exam: Present: normocephalic Eye exam: Present: normal appearance Neck exam: Present: normal inspection Respiratory exam: Present: normal lung sounds bilaterally Cardiovascular Exam: Present: regular rate, normal rhythm Expanded Peripheral pulses: 2+: Dorsalis Pedis (R), Dorsalis Pedis (L) GI/Abdominal exam: Present: soft, tenderness (Mild tenderness lower abdomen), normal bowel sounds. Absent: distended, guarding, rebound, rigid, pulsatile mass Extremities exam: Present: normal inspection Neurological exam: Present: alert Psychiatric exam: Present: normal affect, normal mood Skin exam: Present: normal color Course Vital Signs 03/19/25 03/19/25 03/19/25 08:41 09:13 09:20 Temperature 97.9 F 98.1 F Pulse Rate 81 65 71 Respiratory 16 18 17 Rate Blood Pressure 117/78 118/70 123/68 O2 Sat by Pulse 98 100 Oximetry 03/19/25 09:30 Temperature Pulse Rate 60 Respiratory 11 L Rate Blood Pressure 123/68 O2 Sat by Pulse 100 Oximetry Medical Decision Making - Medical Decision Making Was pt. sent in by a medical professional or institution (, PA, MANAGER CRISIS, urgent care, hospital, or snf...) When possible be specific @ -No Did you speak to anyone other than the patient for history (EMS, parent, family, police, friend...)? What history was obtained from this source @ -No Did you review nursing and triage notes (agree or disagree)? Why? @ -I reviewed and agree with nursing and triage notes Were old charts reviewed (outside hosp., previous admission, EMS record, old EKG, old radiological studies, urgent care reports/EKG's, snf records)? Report findings @ -No old charts were reviewed Differential Diagnosis (chest pain, altered mental status, abdominal pain women, abdominal pain men, vaginal bleeding, weakness, fever, dyspnea, syncope, headache, dizziness, GI bleed, back pain, seizure, CVA, palpatations, mental health, musculoskeletal)? @ -Differential Abdominal Pain Women: Appendicitis, Cholecystitis, diverticulosis, ischemic bowel, pancreatitis, hepatitis, UTI, gastroenteritis, AAA, incarcerated hernia, bowel obstruction, constipation, inflammatory bowel, hepatitis, peptic ulcer disease, splenic infarction, perforated viscus, vulvitis, ovarian torsion, PID, kidney stone, placenta abruption, this is not meant to be an all-inclusive list EKG interpreted by me (3pts min.). @ -As above X-rays interpreted by me (1pt min.). @ -None done CT interpreted by me (1pt min.). @ -CT scan without acute abnormality U/S interpreted by me (1pt. min.). @ -None done What testing was considered but not performed or refused? (CT, X-rays, U/S, labs)? Why? @ -None What meds were considered but not given or refused? Why? @ -None Did you discuss the management of the patient with other professionals (professionals i.e. , PA, MANAGER CRISIS, lab, RT, psych nurse, manager social media, party host, teacher, business enterprise officer, therapeutic case manager)? Give summary @ -No Was smoking cessation discussed for >3mins.? @ -No Was critical care preformed (if so, how long)? @ -No Were there social determinants of health that impacted care today? How? (Homelessness, low income, unemployed, alcoholism, drug addiction, transportation, low edu. Level, literacy, decrease access to med. care, group home, rehab)? @ -No Was there de-escalation of care discussed even if they declined (Discuss DNR or withdrawal of care, Hospice)? DNR status @ -No What co-morbidities impacted this encounter? (DM, HTN, Smoking, COPD, CAD, Cancer, CVA, ARF, Chemo, Hep., AIDS, mental health diagnosis, sleep apnea, morbid obesity)? @ -None Was patient admitted / discharged? Hospital course, mention meds given and route, prescriptions, significant lab abnormalities, going to OR and other pertinent info. @ -Patient presents with several months of abdominal discomfort. Evaluation in emergency department unremarkable. Patient did get some relief with medications. Patient is updated on results as well as need for follow-up and re commended colonoscopy. Undiagnosed new problem with uncertain prognosis? @ -No Drug Therapy requiring intensive monitoring for toxicity (Heparin, Nitro, Insulin, Cardizem)? @ -No Were any procedures done? @ -No Diagnosis/symptom? @ -Abdominal pain Acute, or Chronic, or Acute on Chronic? @ -Acute on chronic Uncomplicated (without systemic symptoms) or Complicated (systemic symptoms)? @ -Default Side effects of treatment? @ -No Exacerbation, Progression, or Severe Exacerbation? @ -No Poses a threat to life or bodily function? How? (Chest pain, [place], [place], pneumonia, PE, COPD, DKA, ARF, appy, cholecystitis, CVA, Diverticulitis, Homicidal, Suicidal, threat to staff... and all critical care pts) @ -No - Lab Data Result diagrams: 03/19/25 08:58 03/19/25 08:58 Lab Results 03/19/25 03/19/25 03/19/25 Range/Units 08:58 08:58 08:58 WBC 3.25 L (4.50-10.00) 10*3/uL RBC 4.05 L (4.10-5.20) 10*6/uL Hgb 12.9 (12.0-15.0) g/dL Hct 38.6 (37.2-46.3) % MCV 95.3 (80.0-97.0) fL MCH 31.9 (27.0-32.0) pg MCHC 33.4 (32.0-37.0) g/dL Plt Count 157 (140-440) 10*3/uL MPV 9.5 (9.5-12.2) fL Immature Gran % (Auto) 0.3 % Neutrophils % 62.8 % Lymphocytes % 24.0 % Monocytes % 9.2 % Eosinophils % 1.2 % Basophils % 2.5 % Immature Gran # 0.01 (0.00-0.04) 10*3/uL Neutrophils # 2.04 (1.80-7.70) 10*3/uL Lymphocytes # 0.78 L (0.90-5.00) 10*3/uL Monocytes # 0.30 (0.20-1.00) 10*3/uL Eosinophils # 0.04 (0.04-0.35) 10*3/uL Basophils # 0.08 (0.00-0.10) 10*3/uL PT 10.5 (10.0-12.5) sec INR 0.9 (<1.2) APTT 24.2 (22.0-30.0) sec Sodium 139 (137-145) mmol/L Potassium 3.7 (3.5-5.1) mmol/L Chloride 106 (98-107) mmol/L Carbon Dioxide 26 (22-30) mmol/L Anion Gap 7 mmol/L BUN 13 (7-17) mg/dL Creatinine 0.83 (0.52-1.04) mg/dL Est GFR (CKD-EPI)AfAm 89 (>60 ml/min/1.73 sqM) Est GFR (CKD-EPI)NonAf 77 (>60 ml/min/1.73 sqM) Glucose 116 H (74-99) mg/dL Calcium 9.5 (8.4-10.2) mg/dL Total Bilirubin 0.4 (0.2-1.3) mg/dL AST 22 (14-36) U/L ALT 17 (4-34) U/L Alkaline Phosphatase 66 (38-126) U/L Total Protein 6.3 (6.3-8.2) g/dL Albumin 4.0 (3.5-5.0) g/dL Amylase 39 (30-110) U/L Lipase 46 (23-300) U/L Urine Color Urine Appearance (Clear) Urine pH (5.0-8.0) Ur Specific [place] (1.001-1.035) Urine Protein (Negative) Urine Glucose (UA) (Negative) Urine Ketones (Negative) Urine Blood (Negative) Urine Nitrite (Negative) Urine Bilirubin (Negative) Urine Urobilinogen (<2.0) mg/dL Ur Leukocyte Esterase (Negative) 03/19/25 Range/Units 09:05 WBC (4.50-10.00) 10*3/uL RBC (4.10-5.20) 10*6/uL Hgb (12.0-15.0) g/dL Hct (37.2-46.3) % MCV (80.0-97.0) fL MCH (27.0-32.0) pg MCHC (32.0-37.0) g/dL Plt Count (140-440) 10*3/uL MPV (9.5-12.2) fL Immature Gran % (Auto) % Neutrophils % % Lymphocytes % % Monocytes % % Eosinophils % % Basophils % % Immature Gran # (0.00-0.04) 10*3/uL Neutrophils # (1.80-7.70) 10*3/uL Lymphocytes # (0.90-5.00) 10*3/uL Monocytes # (0.20-1.00) 10*3/uL Eosinophils # (0.04-0.35) 10*3/uL Basophils # (0.00-0.10) 10*3/uL PT (10.0-12.5) sec INR (<1.2) APTT (22.0-30.0) sec Sodium (137-145) mmol/L Potassium (3.5-5.1) mmol/L Chloride (98-107) mmol/L Carbon Dioxide (22-30) mmol/L Anion Gap mmol/L BUN (7-17) mg/dL Creatinine (0.52-1.04) mg/dL Est GFR (CKD-EPI)AfAm (>60 ml/min/1.73 sqM) Est GFR (CKD-EPI)NonAf (>60 ml/min/1.73 sqM) Glucose (74-99) mg/dL Calcium (8.4-10.2) mg/dL Total Bilirubin (0.2-1.3) mg/dL AST (14-36) U/L ALT (4-34) U/L Alkaline Phosphatase (38-126) U/L Total Protein (6.3-8.2) g/dL Albumin (3.5-5.0) g/dL Amylase (30-110) U/L Lipase (23-300) U/L Urine Color Colorless Urine Appearance Clear (Clear) Urine pH 6.5 (5.0-8.0) Ur Specific [place] 1.011 (1.001-1.035) Urine Protein Negative (Negative) Urine Glucose (UA) Negative (Negative) Urine Ketones Negative (Negative) Urine Blood Negative (Negative) Urine Nitrite Negative (Negative) Urine Bilirubin Negative (Negative) Urine Urobilinogen <2.0 (<2.0) mg/dL Ur Leukocyte Esterase Negative (Negative) Disposition Clinical Impression: Abdominal pain Disposition: HOME SELF-CARE Condition: Stable Instructions (If sedation given, give patient instructions): Abdominal Pain (ED) Additional Instructions: Prescription for Reglan sent to pharmacy. Please do follow-up with primary care physician in the next couple of days for recheck. Follow-up with surgeon or gastroenterology and consider colonoscopy. Return for increased pain, fever, vo miting, worsening or changing symptoms or other concerns. Prescriptions: Metoclopramide HCl [Reglan] 0.5 tab PO Q6HR PRN #15 tablet PRN Reason: Nausea Is patient prescribed a controlled substance at d/c from ED?: No Referrals: Cole Love DO [Primary Care Provider] - 1-2 days Linda Greco DO [Doctor of Osteopathic Medicine] - 1-2 days Estrellita Colby MD [STAFF PHYSICIAN] - 1-2 days Time of Disposition: 11:46
[2025-03-19 09:13] LABS: Basophils # (A) 0.08 10*3/uL (0.00-0.10); Basophils % (A) 2.5 %; Eosinophils # (A) 0.04 10*3/uL (0.04-0.35); Eosinophils % (A) 1.2 %; HCT 38.6 % (37.2-46.3); HGB 12.9 g/dL (12.0-15.0); Lymphocytes # (A) 0.78 10*3/uL (0.90-5.00); Lymphocytes % (A) 24.0 %; MCH 31.9 pg (27.0-32.0); MCHC 33.4 g/dL (32.0-37.0); MCV 95.3 fL (80.0-97.0); Monocytes # (A) 0.30 10*3/uL (0.20-1.00); Monocytes % (A) 9.2 %; Neutrophils # (A) 2.04 10*3/uL (1.80-7.70); Neutrophils % (A) 62.8 %; Platelet Count 157 10*3/uL (140-440); RBC 4.05 10*6/uL (4.10-5.20); RDW 12.6 % (11.5-14.5); WBC 3.25 10*3/uL (4.50-10.00)
[2025-03-19] MEDS: ONDANSETRON 4 MG/2 ML VIAL IVP STA (09:14)
[2025-03-19] MEDS: FAMOTIDINE 20 MG/2 ML VIAL IV STA (09:14)
[2025-03-19] MEDS: MORPHINE SULFATE 4 MG/ML SYRINGE IVP STA (09:14)
[2025-03-19] MEDS: SODIUM CHLORIDE 0.9% 1,000 ML IV SCH (09:15)
[2025-03-19 09:19] LABS: Bilirubin,Urine Negative (Negative); Blood,Urine Negative (Negative); Color,Urine Colorless; Glucose,Urine (UA) Negative (Negative); Ketones,Urine Negative (Negative); Leukocyte Esterase,Urine Negative (Negative); Nitrite,Urine Negative (Negative); PH, Urine 6.5 (5.0-8.0); Protein,Urine Negative (Negative); Specific Gravity,Urine 1.011 (1.001-1.035); Urobilinogen,Urine <2.0 mg/dL (<2.0)
[2025-03-19 09:26] LABS: ALT 17 U/L (4-34); AST 22 U/L (14-36); African American GFR (CKD) 89 (>60 ml/min/1.73 sqM); Albumin 4.0 g/dL (3.5-5.0); Alkaline Phosphatase 66 U/L (38-126); Amylase 39 U/L (30-110); Anion Gap 7 mmol/L; Blood Urea Nitrogen 13 mg/dL (7-17); Calcium 9.5 mg/dL (8.4-10.2); Carbon Dioxide 26 mmol/L (22-30); Chloride 106 mmol/L (98-107); Glucose 116 mg/dL (74-99); INR 0.9 (<1.2); Lipase 46 U/L (23-300); Non-African American GFR(CKD) 77 (>60 ml/min/1.73 sqM); Potassium 3.7 mmol/L (3.5-5.1); Prothrombin Time 10.5 sec (10.0-12.5); Sodium 139 mmol/L (137-145); Total Protein 6.3 g/dL (6.3-8.2)
[2025-03-19 09:27] LABS: Partial Thromboplastin Time 24.2 sec (22.0-30.0)
[2025-03-19 09:37] VITALS: BP 123/68
--- NOTE | 2025-03-19 10:41 | CT ---
EXAMINATION TYPE: CT abdomen pelvis w con DATE OF EXAM: 03/19/2025 10:23 AM COMPARISON: 12/20/[address]24 [address] CTs dating back to 2018. CLINICAL INDICATION: Female, 59 years old with history of abdominal pain; Abdominal pain, lower with decreased appetite and diarrhea TECHNIQUE: Axial CT abdomen pelvis w con;Sagittal and coronal reformats were created on a separate w orkstation. Contrast used:100 ml mL of Isovue 300 with IV Contrast, (none if empty) Oral contrast used: without Oral Contrast (none if empty) CT DLP: 437.6 mGycm, Automated exposure control for dose reduction was used. FINDINGS: LOWER CHEST: Unremarkable ABDOMEN LIVER: Unremarkable GALLBLADDER AND BILE DUCTS: Unremarkable. PANCREAS: Unremarkable. SPLEEN: Unremarkable. ADRENAL GLANDS: Unremarkable. KIDNEYS AND URETERS: No evidence of hydronephrosis or obstructing renal calculus. The ureters are unr emarkable. Areas of cortical thinning in the right kidney most pronounced superiorly suggestive of prior injuries. Extrarenal pelves noted bilaterally. PELVIS BLADDER: No evidence for wall thickening or mass given limitations of exam. REPRODUCTIVE: The uterus is surgically absent. ABDOMEN & PELVIS STOMACH AND BOWEL: No evidence of bowel obstruction. Scattered colonic diverticulosis. The appendix i s normal. PERITONEUM/RETROPERITONEUM: No evidence of pneumoperitoneum or free fluid. VASCULATURE: Mild atherosclerotic calcifications are present throughout the abdominal aorta and its b ranches. No evidence of aortic aneurysm. MUSCULOSKELETAL: No acute osseous abnormalities. Moderate disc degeneration changes are present throu ghout the thoracolumbar spine. There is severe L5-S1 neural foraminal stenosis bilaterally. LYMPH NODES: No gross evidence for lymphadenopathy. SOFT TISSUE/ABDOMINAL WALL: Unremarkable IMPRESSION: 1. No evidence for acute abdominal process. Normal appendix. No obstructive uropathy. No renal calcu li. 2. Similar Extrarenal pelvis bilaterally back to at least 2018. 3. Prior injury to the right superior pole kidney with cortical thinning. 4. Colonic diverticulosis. 5. Severe facet joint arthropathy at L5-S1 with severe bilateral neural foraminal stenosis. [facility], , 03/19/2025 10:39 AM
[2025-03-19] MEDS: DICYCLOMINE 10 MG/ML 2 ML AMP IM STA (11:54)
[2025-03-19 11:59] VITALS: PULSE 58; RESP 17; TEMP 98.2
== END 2025-03-19 12:15 | disposition home or self-care (01) ==
LOC: EC 08:39
DX: R10.9 Unspecified abdominal pain (principal); Z88.1 Allergy status to other antibiotic agents; Z88.2 Allergy status to sulfonamides; Z88.6 Allergy status to analgesic agent
CPT/HCPCS: 36415; 80053; 82150; 83690; 85025; 85610; 85730; 81003; 74177; 99284; 96374; 96375 ×2; 96361; 96372; J2270; J0500; J2405; Q9967; J1308